=== PATIENT | male | born 1980 | race Caucasian/White ===

== ENCOUNTER 2016-09-20 22:53 | Emergency (ER) | payer SELFPAY ==
[2016-09-21] MEDS ORDERED: IBUPROFEN 800 MG TAB As Ordered ONE (01:12)
--- NOTE | 2016-09-21 01:47 | EDDOCDS ---
Nurse's Notes [facility] Name: Jose Enrique Ferguson Age: 36 yrs Sex: Male : 1980 Arrival Date: 09/20/2016 Time: 22:53 Bed Triage 3 Private MD: NO PRIMARY PHYSICIAN, . Diagnosis: Contusion of right foot Presentation: 09/20 23:01 Presenting complaint: Patient states: Slipped on the snow injured right foot. C/o pain jo3 in the ball of foot and unable to bear wt. Adult Sepsis Screening: The patient does not have new or worsening altered mentation. Patient's respiratory rate is less than 22. Systolic blood pressure is greater than 100. Patient has a qSOFA score of 0- Negative Sepsis Screen. Suicide/Homicide risk assessment- the patient denies having any suicidal and/or homicidal ideations and does not present with any other emotional, behavioral or mental health complaints. Status: Patient is not a tire servicer or dependent. Transition of care: patient was not received from another setting of care. 23:01 Acuity: ROCK Level 4 jo3 23:01 Method Of Arrival: Walkin/Carried/Asstd jo3 Triage Assessment: 23:05 General: Appears in no apparent distress, Behavior is appropriate for age, cooperative, jo3 pleasant. Pain: Pain currently is 6 out of 10 on a pain scale. At worst was 9 out of 10 on a pain scale. HIV screening NA for this visit Offered previously. Neurological: Level of Consciousness is awake, alert, Oriented to person, place, time. Respiratory: Airway is patent Respiratory effort is even, unlabored. Derm: Skin is pink, warm & dry. Historical: - Allergies: No known drug Allergies; - Home Meds: 1. none - PMHx: none; - PSHx: lymph node removed from right axilla; - Social history: Smoking status: Patient states was never smoker of tobacco. No barriers to communication noted, The patient speaks fluent Lithuanian, Speaks appropriately for age. - Family history: Not pertinent. - : The pt / caregiver states he / she is not on anticoagulants. Home medication list is obtained from the patient. - Exposure Risk Screening:: None identified. Screenin/14 01:44 Screening information is obtained from the patient. Fall risk: No risks identified. jmb Assistance ADL's: requires no assistance with activities of daily living. Abuse/DV Screen: The patient / caregiver reports he/she is: not in a situation that causes fear, pain or injury. Nutritional screening: No deficits noted. Advance Directives: Currently, there is no health care proxy. There is no active DNR order. There is no living will. There is no Power of Lead Data Entry Operator. home support is adequate. Assessment: 01:44 General: Patient instructed on discharge instructions. Patient asked if there were any [facility] questions regarding discharge, patient stated no. Patient signed discharge instructions. Patient discharged in stable condition. . Musculoskeletal: No deformity noted. Vital Signs: 09/20 22:55 BP 114 / 70; Pulse 89; Resp 18 S; Temp 98.0; Pulse Ox 98% on R/A; Weight 74.84 kg (R); dd6 Height 5 ft. 9 in. (175.26 cm) (R); 09/21 01:44 BP 112 / 70; Pulse 80; Resp 18; Temp 97.0(O); Pulse Ox 98% on R/A; Pain 0/10; b 09/20 22:55 Body Mass Index 24.37 (74.84 kg, 175.26 cm) dd6 Vitals: 09/20 22:55 Log In Time: September 20, 2016 at 22:53. dd6 ED Course: 22:55 Patient visited by Adrian Reynolds PCA. dd6 22:55 NO PRIMARY PHYSICIAN, . is Private Physician. dd6 22:55 Patient moved to Waiting dd6 22:56 Patient moved to Pre RCE dd6 23:04 Triage Initiated jo3 23:06 Patient visited by Myriam Thurston RN. jo3 23:53 Patient moved to Triage 3 b 09/21 00:39 Lc Welsh PA is PHCP. mo1 00:39 Talha Chamberlain DO is Attending Physician. mo1 00:57 Patient visited by Lc Welsh PA. mo1 01:27 Patient name changed from Jose Enrique\S\\S\Ferguson\S\ to Jose Enrique\S\ \S\Ferguson. EDMS 01:27 [facility] Payment Agreement was scanned into [email or web address] and attached to record. pm4 01:44 The patient / caregiver is instructed regarding the plan of care and ED course. jmb 01:44 No IV's were initiated during this patient's visit. No procedures done that require jmb assistance. Administered Medications: 01:15 Drug: Ibuprofen 800 mg [ibuprofen 800 mg tablet (1 tabs)] Route: PO; jmb Order Results: There are currently no results for this order. Outcome: 01:37 Discharge ordered by Provider. mo1 01:44 Discharge Assessment: Patient awake, alert and oriented x 3. No cognitive and/or jmb functional deficits noted. Patient verbalized understanding of disposition instructions. Patient awake and alert. obeys commands, Oriented to person, place and time. Patient verbalized understanding of disposition instructions. patient administered narcotics - no. The following High Risk Discharge criteria are identified: None. Discharged to home ambulatory. Condition: stable. Discharge instructions given to patient, Instructed on discharge instructions, follow up and referral plans. Demonstrated understanding of instructions, Pt was receptive of discharge instructions/ teaching. No special radiology studies were completed. Property sent home with patient. 01:46 Patient left the ED. jaime Signatures: Dispatcher [employer] EDMyriam Osullivan,RN RN jo3 Adrian Reynolds, CURRICULUM DIRECTOR CURRICULUM DIRECTOR dd6 Lc Welsh PA PA mo1 Samm Stevens RN RN Esdras Odonnell, Reg Reg pm4 MTDD
--- NOTE | 2016-09-21 01:47 | EDDOCDS ---
Physician Documentation [facility] Name: Jose Enrique Ferguson Age: 36 yrs Sex: Male : 1980 Arrival Date: 09/20/2016 Time: 22:53 Bed Triage 3 Private MD: NO PRIMARY PHYSICIAN, . Disposition: 09/21/16 01:37 Discharged to Home/Self Care. Impression: Contusion of right foot. - Condition is Stable. - Discharge Instructions: Elastic Bandage and RICE, Foot Contusion. - Medication Reconciliation, Local Pharmacy Hours form. - Follow up: Private Physician; When: Call to arrange an appointment; Reason: Recheck today's complaints, Continuance of care. - Problem is new. - Symptoms are unchanged. Historical: - Allergies: No known drug Allergies; - Home Meds: 1. none - PMHx: none; - PSHx: lymph node removed from right axilla; - Social history: Smoking status: Patient states was never smoker of tobacco. No barriers to communication noted, The patient speaks fluent Bulgarian, Speaks appropriately for age. - Family history: Not pertinent. - : The pt / caregiver states he / she is not on anticoagulants. Home medication list is obtained from the patient. - Exposure Risk Screening:: None identified. Vital Signs: 09/20 22:55 BP 114 / 70; Pulse 89; Resp 18 S; Temp 98.0; Pulse Ox 98% on R/A; Weight 74.84 kg / dd6 164.99 lbs (R); Height 5 ft. 9 in. (175.26 cm) (R); 09/21 01:44 BP 112 / 70; Pulse 80; Resp 18; Temp 97.0(O); Pulse Ox 98% on R/A; Pain 0/10; jmb 09/20 22:55 Body Mass Index 24.37 (74.84 kg, 175.26 cm) dd6 MDM: 01:09 Ibuprofen 800 mg PO once ordered. mo1 01:10 Foot, Complete Ordered. EDMS 01:25 Financial registration complete. pm4 01:27 [facility] Payment Agreement was scanned into [employer] and attached to record. pm4 01:36 Stephen Wrap ordered. mo1 Administered Medications: 01:15 Drug: Ibuprofen 800 mg [ibuprofen 800 mg tablet (1 tabs)] Route: PO; jaime Signatures: Dispatcher [employer] Myriam ResendizRN RN jo3 Lc Welsh PA PA mo1 Becker, Joshua, RN RN jmb Esdras Durham, Reg Reg pm4 The chart was reviewed and I authenticate all verbal orders and agree with the evaluation and treatment provided.Attachments: 01:27 [facility] Payment Agreement pm4 MTDD
--- NOTE | 2016-09-21 08:21 | REP ---
Clinical: Trauma. Technique: AP, lateral, bilateral oblique views of the right foot. Findings: No acute fracture or dislocation appreciated. Skeletal structures, joint spaces, and surrounding soft tissues appear normal for age. No subcutaneous emphysema or radiodense foreign body. Impression: No acute fracture or dislocation. Signed by Judson Petty MD 09/21/2016 08:12 A
--- NOTE | 2016-09-23 02:47 | EDDOCDS ---
Physician Documentation [facility] Name: Jose Enrique Ferguson Age: 36 yrs Sex: Male : 1980 Arrival Date: 09/20/2016 Time: 22:53 Bed Triage 3 Private MD: NO PRIMARY PHYSICIAN, . Disposition: 09/21/16 01:37 Discharged to Home/Self Care. Impression: Contusion of right foot. - Condition is Stable. - Discharge Instructions: Elastic Bandage and RICE, Foot Contusion. - Medication Reconciliation, Local Pharmacy Hours form. - Follow up: Private Physician; When: Call to arrange an appointment; Reason: Recheck today's complaints, Continuance of care. - Problem is new. - Symptoms are unchanged. Historical: - Allergies: No known drug Allergies; - Home Meds: 1. none - PMHx: none; - PSHx: lymph node removed from right axilla; - Social history: Smoking status: Patient states was never smoker of tobacco. No barriers to communication noted, The patient speaks fluent Lithuanian, Speaks appropriately for age. - Family history: Not pertinent. - : The pt / caregiver states he / she is not on anticoagulants. Home medication list is obtained from the patient. - Exposure Risk Screening:: None identified. Vital Signs: 09/20 22:55 BP 114 / 70; Pulse 89; Resp 18 S; Temp 98.0; Pulse Ox 98% on R/A; Weight 74.84 kg / dd6 164.99 lbs (R); Height 5 ft. 9 in. (175.26 cm) (R); 09/21 01:44 BP 112 / 70; Pulse 80; Resp 18; Temp 97.0(O); Pulse Ox 98% on R/A; Pain 0/10; jmb 09/20 22:55 Body Mass Index 24.37 (74.84 kg, 175.26 cm) dd6 MDM: 01:09 Ibuprofen 800 mg PO once ordered. mo1 01:10 Foot, Complete Ordered. EDMS 01:25 Financial registration complete. pm4 01:27 [facility] Payment Agreement was scanned into [employer] and attached to record. pm4 01:36 Stephen Wrap ordered. mo1 09:15 T-Sheet-- Draft Copy was scanned into [employer] and attached to record. [facility] Administered Medications: 01:15 Drug: Ibuprofen 800 mg [ibuprofen 800 mg tablet (1 tabs)] Route: PO; jaime Signatures: Dispatcher [employer] Myriam Resendiz RN RN Lc Ford PA PA mo1 Becker, Joshua, RN RN jaime Barker, Esdras Desai, Reg Reg pm4 The chart was reviewed and I authenticate all verbal orders and agree with the evaluation and treatment provided.Attachments: 01:27 [facility] Payment Agreement pm4 09:15 T-Sheet-- Draft Copy [facility] Chart Complete MTDD
--- NOTE | 2016-09-23 02:47 | EDDOCDS ---
Nurse's Notes [facility] Name: Jose Enrique Ferguson Age: 36 yrs Sex: Male : 1980 Arrival Date: 09/20/2016 Time: 22:53 Bed Triage 3 Private MD: NO PRIMARY PHYSICIAN, . Diagnosis: Contusion of right foot Presentation: 09/20 23:01 Presenting complaint: Patient states: Slipped on the snow injured right foot. C/o pain jo3 in the ball of foot and unable to bear wt. Adult Sepsis Screening: The patient does not have new or worsening altered mentation. Patient's respiratory rate is less than 22. Systolic blood pressure is greater than 100. Patient has a qSOFA score of 0- Negative Sepsis Screen. Suicide/Homicide risk assessment- the patient denies having any suicidal and/or homicidal ideations and does not present with any other emotional, behavioral or mental health complaints. Status: Patient is not a supervisor home restoration service or dependent. Transition of care: patient was not received from another setting of care. 23:01 Acuity: ROCK Level 4 jo3 23:01 Method Of Arrival: Walkin/Carried/Asstd jo3 Triage Assessment: 23:05 General: Appears in no apparent distress, Behavior is appropriate for age, cooperative, jo3 pleasant. Pain: Pain currently is 6 out of 10 on a pain scale. At worst was 9 out of 10 on a pain scale. HIV screening NA for this visit Offered previously. Neurological: Level of Consciousness is awake, alert, Oriented to person, place, time. Respiratory: Airway is patent Respiratory effort is even, unlabored. Derm: Skin is pink, warm & dry. Historical: - Allergies: No known drug Allergies; - Home Meds: 1. none - PMHx: none; - PSHx: lymph node removed from right axilla; - Social history: Smoking status: Patient states was never smoker of tobacco. No barriers to communication noted, The patient speaks fluent Chinese, Speaks appropriately for age. - Family history: Not pertinent. - : The pt / caregiver states he / she is not on anticoagulants. Home medication list is obtained from the patient. - Exposure Risk Screening:: None identified. Screenin/14 01:44 Screening information is obtained from the patient. Fall risk: No risks identified. jmb Assistance ADL's: requires no assistance with activities of daily living. Abuse/DV Screen: The patient / caregiver reports he/she is: not in a situation that causes fear, pain or injury. Nutritional screening: No deficits noted. Advance Directives: Currently, there is no health care proxy. There is no active DNR order. There is no living will. There is no Power of Professor Of Education. home support is adequate. Assessment: 01:44 General: Patient instructed on discharge instructions. Patient asked if there were any [facility] questions regarding discharge, patient stated no. Patient signed discharge instructions. Patient discharged in stable condition. . Musculoskeletal: No deformity noted. Vital Signs: 09/20 22:55 BP 114 / 70; Pulse 89; Resp 18 S; Temp 98.0; Pulse Ox 98% on R/A; Weight 74.84 kg (R); dd6 Height 5 ft. 9 in. (175.26 cm) (R); 09/21 01:44 BP 112 / 70; Pulse 80; Resp 18; Temp 97.0(O); Pulse Ox 98% on R/A; Pain 0/10; b 09/20 22:55 Body Mass Index 24.37 (74.84 kg, 175.26 cm) dd6 Vitals: 09/20 22:55 Log In Time: September 20, 2016 at 22:53. dd6 ED Course: 22:55 Patient visited by Adrian Reynolds PCA. dd6 22:55 NO PRIMARY PHYSICIAN, . is Private Physician. dd6 22:55 Patient moved to Waiting dd6 22:56 Patient moved to Pre RCE dd6 23:04 Triage Initiated jo3 23:06 Patient visited by Myriam Thurston RN. jo3 23:53 Patient moved to Triage 3 b 09/21 00:39 Lc Welsh PA is PHCP. mo1 00:39 Talha Chamberlain DO is Attending Physician. mo1 00:57 Patient visited by Lc Welsh PA. mo1 01:27 Patient name changed from Jose Enrique\S\\S\Ferguson\S\ to Jose Enrique\S\ \S\Ferguson. EDMS 01:27 [facility] Payment Agreement was scanned into [employer] and attached to record. pm4 01:44 The patient / caregiver is instructed regarding the plan of care and ED course. jmb 01:44 No IV's were initiated during this patient's visit. No procedures done that require jmb assistance. 08:46 Foot, Complete Returned. EDGA 09:15 T-Sheet-- Draft Copy was scanned into [employer] and attached to record. [facility] Administered Medications: 01:15 Drug: Ibuprofen 800 mg [ibuprofen 800 mg tablet (1 tabs)] Route: PO; jmb Order Results: Radiology Order: Foot, Complete Test: Foot, Complete REASON FOR EXAMINATION: Trauma; Clinical: Trauma.; ; Technique: AP, lateral, bilateral oblique views of the right foot.; ; Findings:; No acute fracture or dislocation appreciated. Skeletal structures, joint spaces,; and surrounding soft tissues appear normal for age. No subcutaneous emphysema or; radiodense foreign body.; ; Impression:; No acute fracture or dislocation.; ; ; Signed by; Judson Petty MD 09/21/2016 08:12 A; Outcome: 01:37 Discharge ordered by Provider. mo1 01:44 Discharge Assessment: Patient awake, alert and oriented x 3. No cognitive and/or jmb functional deficits noted. Patient verbalized understanding of disposition instructions. Patient awake and alert. obeys commands, Oriented to person, place and time. Patient verbalized understanding of disposition instructions. patient administered narcotics - no. The following High Risk Discharge criteria are identified: None. Discharged to home ambulatory. Condition: stable. Discharge instructions given to patient, Instructed on discharge instructions, follow up and referral plans. Demonstrated understanding of instructions, Pt was receptive of discharge instructions/ teaching. No special radiology studies were completed. Property sent home with patient. 01:46 Patient left the ED. jaime Signatures: Dispatcher [facility] Myriam Thurston,RN RN jo3 Adrian Reynolds, STEMHOLE BORER STEMHOLE BORER dd6 Lc Welsh PA PA mo1 Samm Stevens RN RN jmb Hoffert, Sarah seh Montondo, Paul, Reg Reg pm4 Chart Complete MTDD
--- NOTE | 2016-09-23 02:47 | EDDOCDS ---
Physician Documentation [facility] Name: Jose Enrique Ferguson Age: 36 yrs Sex: Male : 1980 Arrival Date: 09/20/2016 Time: 22:53 Bed Triage 3 Private MD: NO PRIMARY PHYSICIAN, . Disposition: 09/21/16 01:37 Discharged to Home/Self Care. Impression: Contusion of right foot. - Condition is Stable. - Discharge Instructions: Elastic Bandage and RICE, Foot Contusion. - Medication Reconciliation, Local Pharmacy Hours form. - Follow up: Private Physician; When: Call to arrange an appointment; Reason: Recheck today's complaints, Continuance of care. - Problem is new. - Symptoms are unchanged. Historical: - Allergies: No known drug Allergies; - Home Meds: 1. none - PMHx: none; - PSHx: lymph node removed from right axilla; - Social history: Smoking status: Patient states was never smoker of tobacco. No barriers to communication noted, The patient speaks fluent Luxembourgish, Speaks appropriately for age. - Family history: Not pertinent. - : The pt / caregiver states he / she is not on anticoagulants. Home medication list is obtained from the patient. - Exposure Risk Screening:: None identified. Vital Signs: 09/20 22:55 BP 114 / 70; Pulse 89; Resp 18 S; Temp 98.0; Pulse Ox 98% on R/A; Weight 74.84 kg / dd6 164.99 lbs (R); Height 5 ft. 9 in. (175.26 cm) (R); 09/21 01:44 BP 112 / 70; Pulse 80; Resp 18; Temp 97.0(O); Pulse Ox 98% on R/A; Pain 0/10; jmb 09/20 22:55 Body Mass Index 24.37 (74.84 kg, 175.26 cm) dd6 MDM: 01:09 Ibuprofen 800 mg PO once ordered. mo1 01:10 Foot, Complete Ordered. EDMS 01:25 Financial registration complete. pm4 01:27 [facility] Payment Agreement was scanned into [employer] and attached to record. pm4 01:36 Stephen Wrap ordered. mo1 09:15 T-Sheet-- Draft Copy was scanned into [employer] and attached to record. [facility] Administered Medications: 01:15 Drug: Ibuprofen 800 mg [ibuprofen 800 mg tablet (1 tabs)] Route: PO; jaime Signatures: Dispatcher [employer] Myriam Resendiz RN RN Lc Ford PA PA mo1 Becker, Joshua, RN RN jaime Barker, Esdras Desai, Reg Reg pm4 The chart was reviewed and I authenticate all verbal orders and agree with the evaluation and treatment provided.Attachments: 01:27 [facility] Payment Agreement pm4 09:15 T-Sheet-- Draft Copy [facility] Chart Complete MTDD
== END 2016-09-21 01:46 | disposition home or self-care (01) ==
LOC: M ED 22:53
DX: S90.31XA Contusion of right foot, initial encounter (principal); X50.9XXA Other and unspecified overexertion or strenuous movements or postures, initial encounter; Y92.89 Other specified places as the place of occurrence of the external cause; Y93.89 Activity, other specified; Y99.8 Other external cause status